=== PATIENT | male | born 1975 | race African-American/Black ===

== ENCOUNTER → 2023-01-02 | Outpatient (CLI) | payer MEDICARE, MEDICAID ==
[~2023-01-02] MED LIST: ALBUTEROL0.83 MG/ML IH; AMITRIPTYLINE H10 M1 PO; APRESOLINE 25MG25 MG PO; ASPIRIN 81M81 MG/TA2 PO; ASPIRIN E.C. 8181 MG PO; BRILINTA90 MG PO; CATAPRES 0.1MG0.1 MG PO; CENTRUM MEN'S PO; COREG 25MG25 MG/TAB PO; COREG12.5 MG PO; COZAAR100 MG PO; DEPAKOTE ER 50500 MG PO; FLONASE NASAL S16 GM NS; FLOVENT DI50 MCG/Act IH; IMITREX 25MG TA25 MG PO; INSPRA25 MG PO; IPRATROPIUM BROM3 M1 IH; KLOR-CON M2020 MEQ PO; LASIX 20MG TABL20 MG PO; LASIX 80MG TABL80 MG PO; NAPROSYN500 MG PO; NEXIUM 40MG40 MG PO; NORVASC 10MG10 MG PO; NORVASC 5MG5 MG/TAB PO; PRAVACHOL 40MG40 MG PO; PRILOSEC 20MG20 MG PO; VENTOLIN0.09 MG IH; ZAROXOLYN 2.52.5 MG PO; ZOFRAN8 MG PO
== END ==
LOC: COL.VAS 12-26 12:30
DX: Z01.810 Encounter for preprocedural cardiovascular examination (principal); I51.7 Cardiomegaly; I34.0 Nonrheumatic mitral (valve) insufficiency; Q24.0 Dextrocardia; I25.10 Atherosclerotic heart disease of native coronary artery without angina pectoris